=== PATIENT | female | born 1995 | race Two or more races ===

== ENCOUNTER 2025-01-11 16:51 | Emergency (ER) | payer MEDICAID, SELFPAY ==
[2025-01-11 16:52] VITALS: BMI 24.4
[2025-01-11 17:09] VITALS: BP 103/73; PULSE 93; RESP 18; TEMP 36.8; O2SAT 98; BMI 24.4
--- NOTE | 2025-01-11 17:27 | PD.EDBACK ---
ED Back Injury Pain RME/HPI General Chief Complaint: Back Pain/Injury Stated Complaint: REALLY BAD KIDNEY & LOWER BACK PAIN X 1 WK Time Seen by Provider: 01/11/25 17:22 Source: patient Arrival date/time: 01/11/25 16:51 Mode of arrival: ambulatory Limitations: no limitations RME / HPI RME / HPI Narrative: 29-year-old female presents to the ED with a complaint of low back pain that is left and right of her low spine with pelvic pain. This began 4 days ago. Patient tells me she had taken ibuprofen which seemed to help however her pain is becoming progressively worse. Patient also complains of tingling to the legs as well as to her upper extremities. Patient denies trauma. MD Complaint: back pain Onset (ago): day(s) (4 days) Duration: constant Similar Symptoms Previously: No Severity: moderate Relieving factors: immobilization Related Data Home Medications ?Medication ?Instructions ?Recorded ?Confirmed hydrocodone 5 mg-acetaminophen 325 1 tab PO Q6H PRN Pain 12/07/23 12/07/23 mg tablet Previous Rx's ?Medication ?Instructions ?Recorded cefuroxime axetil 500 mg tablet 500 mg PO BID #14 tabs 03/06/24 cyclobenzaprine 10 mg tablet 10 mg PO HS #20 tabs 01/11/25 naproxen 500 mg tablet 500 mg PO BID #20 tabs 01/11/25 Allergies Allergy/AdvReac Type Severity Reaction Status Date / Time No Known Allergies Allergy Verified 01/11/25 16:55 Review of Systems Constitutional Constitutional: Reports system reviewed and no additional complaints, except as documented Eyes Eyes: Reports system reviewed and no additional complaints, except as documented, Denies dry eyes, Denies exophthalmos and Reports floaters Cardiovascular Cardiovascular: Denies chest pain with activity and Denies claudication ED Exam Narrative Physical exam: Straight leg raises are negative for radiculopathy positive for low back pain. Negative for CVA tenderness. There is tenderness to palpation in the area just below the bladder left and right equally. There is no guarding negative for rebound tenderness. Patient is able to do up to 5 jumping jacks without a grimace however states pain to her low back denies pain to the epigastrium. General Limitations: Present no limitations General appearance: Present alert and in no apparent distress Head Head exam: Present atraumatic Eye Eye exam: Present normal appearance and EOMI ENT ENT exam: Present normal exam, normal oropharynx and mucous membranes moist Neck Neck exam: Present normal inspection, full ROM and trachea midline Chest Chest inspection: Present normal inspection and symmetric chest wall rise Respiratory Respiratory exam: Present normal lung sounds bilaterally Cardiovascular Cardiovascular exam: Present regular rate, normal rhythm and normal heart sounds Abdominal Exam Abdominal exam: Present soft, tenderness (There is tenderness to palpation left and right lower quadrants, negative for rebound tenderness. There is no guarding and there is no masses.) and normal bowel sounds Extremities Exam Extremities exam: Present normal inspection and full ROM Back Exam Back exam: Present normal inspection and full ROM Neurological Exam Neurological exam: Present alert and oriented X3 Psychiatric Psychiatric exam: Present normal affect and normal mood Skin Skin exam: Present warm, dry, intact and normal color Course Course Course Narrative: Patient will have a 3 view lumbar spine, CBC, CMP, UA, hCG, lipase. She will also have Toradol 30 mg IM. Quality Measures none Orders Category Date Time Status XR lumbar spine 2-3V Stat Exams 01/11/25 17:32 Completed CBC Stat Lab 01/11/25 17:49 Completed Comprehensive Metabolic Panel Stat Lab 01/11/25 17:49 Completed HCG Qualitative,Urine Stat Lab 01/11/25 17:55 Completed Lipase Stat Lab 01/11/25 17:49 Completed Urinalysis Stat Lab 01/11/25 17:55 Completed Ketorolac Inj [Toradol Inj] Med 01/11/25 17:27 Discontinued 30 mg IM X1 ONE Complete Vital Signs Vital signs: Vital Signs Temperature 98.3 F 01/11/25 17:09 Pulse Rate 93 01/11/25 17:09 Respiratory Rate 18 01/11/25 17:09 Blood Pressure 103/73 01/11/25 17:09 Pulse Oximetry (%) 98 01/11/25 17:09 Oxygen Delivery Method Room Air 01/11/25 17:09 Pulse ox 98% room air Back Pain / Injury MDM Narrative MDM Narrative:: Patient tells me Toradol 30 mg IM helped. I described and explained the labs with the patient. I explained that she had disc narrowing at L4-L5 which was possibly contributing to her low back pain as well as the numbness and tingling to her left and right lower extremities. Patient will be discharged with 500 mg of Naprosyn sent to the pharmacy of her choice. Patient will also have Flexeril sent to the pharmacy of her choice. Patient will be discharged in no apparent distress. She has to follow-up with primary care physician within 1 week. Or sooner if worse Patient data External records reviewed:: Other (specify) (N/A) Clinical information provided by:: patient Social determinants that could affect healthcare access:: none (N/A) Patient has the following chronic illnesses:: No chronic illness How is presenting disease/condition affected by chronic disease/condition?: no chronic disease Evaluation data The following diagnostics were reviewed and interpreted by me:: radiology exam(s) and other (specify) Lab and/or radiology exams considered but not ordered:: Lab review as well as x-ray review. Interpretation Summary: Low back pain secondary to disc narrowing of L4-L5. Medications / Prescriptions Medications or Prescriptions considered but not ordered:: None Medication administrations:: Medication Administration History Discontinued Medications Ketorolac Tromethamine (Ketorolac Inj 60 Mg/2 Ml Vial) 30 mg IM X1 ONE Stop: 01/11/25 17:28 Last Admin: 01/11/25 17:35 Dose: 30 mg Documented By: KATHY None Consultations Consultation(s) initiated? (list below): No Diagnosis Most likely diagnosis given after review of the tests above:: Low back pain secondary to disc narrowing of L4-L5 Admission Indicated Admission indicated?: not indicated Admission Request Was there a request for admission?: No Disposition Plan Disposition Plan: Discharge Discharge Attestation Discharge Attestation: The patient and all family members were given an opportunity to ask questions and understood the discharge instructions. Discharge instructions specifically effects, indications for sooner follow up or return to the emergency department, and the expected course of current diagnosis. Patient condition: Stable Discharge Plan Plan Patient Disposition: HOME (Self Care) Discharge Disposition comment: Discharge no apparent distress Patient condition on transfer: Stable Prescriptions/Referrals Prescriptions/Med Rec: New cyclobenzaprine 10 mg tablet 10 mg PO HS Qty: 20 0RF naproxen 500 mg tablet 500 mg PO BID Qty: 20 0RF No Action hydrocodone-acetaminophen [[place]] 5-325 mg Tablet 1 tab PO Q6H PRN (Reason: Pain) cefuroxime axetil 500 mg tablet 500 mg PO BID Qty: 14 0RF Referrals: Irwin Flores MD [Primary Care Provider] - In 1 week Problem List Clinical Impression: Low back pain Impression comment: Low back pain Patient/Caregiver Discharge Instructions Discharge Activity: activity as tolerated Education Materials: Anatomy of a Normal Spine Print Language: Guamanian Stand Alone Forms: Tiny Award Info., Patient Portal Info Letter PA/TECHNOLOGY RISK INTERN Supervising Physician PA/TECHNOLOGY RISK INTERN Supervising Physician: Lisa
--- NOTE | 2025-01-11 17:32 | XR_ITS ---
Examination: Lumbar spine 2 views TECHNIQUE: AP lateral lumbar spine 2 views Date and time: January 11, 2025 1837 hours INDICATIONS: Low back pain beginning one week ago. FINDINGS: Adequate alignment lumbar vertebral bodies. No lumbar fracture Mild disc narrowing L5-S1 No spondylolisthesis IMPRESSION: Mild disc narrowing L5-S1
[2025-01-11] MEDS: KETOROLAC INJ 60 MG/2 ML VIAL 30 MG IM (17:35)
[2025-01-11 17:57] LABS: Basophils % (Auto) 0 % (0-2.5); Eosinophils # (Auto) 0.1 Thou/mm3 (0.0-0.5); Eosinophils % (Auto) 1 % (0-10); Hematocrit 38.3 % (36.0-46.0); Hemoglobin 12.8 g/dL (12.0-16.0); Immature Granulocytes % (Auto) 0 % (0-0); Immature Granulocytes Auto 0.02 Thou/mm3 (0.00-0.00); Lymphocytes % (Auto) 15 % (10-50); Mean Corpuscular HGB Conc 33.4 g/dl (31.0-37.0); Mean Corpuscular Hemoglobin 30.2 pg (25.0-35.0); Mean Corpuscular Volume 90 fL (80-100); Monocytes # (Auto) 0.4 Thou/mm3 (0.0-0.8); Monocytes % (Auto) 7 % (0-12); Neutrophils % (Auto) 77 % (37-80); Nucleated Red Blood Cell % 0 /100 WBC (0); Platelet Count 210 Thou/mm3 (140-440); RDW Standard Deviation 43.1 fL (36.4-46.3); Red Blood Count 4.24 Miln/mm3 (4.00-5.20); White Blood Count 6.5 Thou/mm3 (3.6-11.0)
[2025-01-11 18:12] LABS: Collection Type, Urine Clean Catch
--- NOTE | 2025-01-11 18:17 | PC.NURSE ---
XRAY WAITING FOR HCG RESULTS, THEN XRAY WILL BE DONE IF NEGATIVE.
[2025-01-11 18:18] LABS: Anion Gap 9 (7-16); Blood Urea Nitrogen 11 mg/dL (9-23); Carbon Dioxide 24.3 mMol/L (20.0-31.0); Chloride 108 mMol/L (98-107); Potassium 3.7 mMol/L (3.4-5.1); Sodium 141 mMol/L (136-145)
[2025-01-11 18:19] LABS: Alanine Aminotransferase 12 U/L (10-49); Albumin, Serum 4.4 gm/dL (3.5-5.0); Albumin/Globulin Ratio 1.8 (1.2-2.2); Alkaline Phosphatase 86 U/L (46-116); Aspartate Amino Transferase 21 U/L (0-34); BUN/Creatinine Ratio 16 Ratio (12-20); Bilirubin,Total 0.6 mg/dL (0.3-1.2); Calcium 8.3 mg/dL (8.3-10.6); Calcium (Corrected) 8.3 mg/dL (8.5-10.1); Creatinine (Component) 0.7 mg/dL (0.6-1.3); Estimated Creatinine Clearance 95.2 mL/min (>60); Globulin 2.5 gm/dL (2.3-3.5); Glucose 112 mg/dL (74-106); Lipase 31 U/L (12-53); Osmolality,Calculated 281 (275-295); Total Protein 6.9 gm/dL (5.7-8.2); eGFR > 60 See Note
[2025-01-11 18:21] LABS: Bilirubin,Urine Negative (Negative); Blood,Urine 1+ (Negative); Clarity,Urine Clear (Clear/Hazy); Color,Urine Yellow (Lt Yel-Yel); Glucose, Urine Negative (Negative); Ketones,Urine Negative (Negative); Leukocyte Esterase,Urine Negative (Negative); Nitrite,Urine Negative (Negative); Protein,Urine 1+ (Neg - Trace); RBC,Urine 1 /hpf (0-3); Specific Gravity,Urine 1.034 (1.001-1.035); Squamous Epithelial Cell,Urine 1 /hpf (0-5); Urobilinogen,Urine Negative mg/dL (0.0-1.0); WBC,Urine 1 /hpf (0-5)
[2025-01-11 18:29] LABS: HCG Qualitative,Urine Negative
[2025-01-11 19:15] VITALS: BP 116/62; PULSE 72; RESP 18; TEMP 36.7; O2SAT 99
== END 2025-01-11 19:16 | disposition home or self-care (01) ==
PROVIDERS: Physician Assistant; Emergency Provider Family Medicine; PCP Family Medicine
DX: M48.061 Spinal stenosis, lumbar region without neurogenic claudication (principal)
CPT/HCPCS: 36415; 72100; 80053; 81001; 81025; 83690; 85025; 96372; 99283; J1885

== ENCOUNTER 2025-05-03 21:34 | Emergency (ER) | payer OTHER, SELFPAY ==
[2025-05-03 21:35] VITALS: BMI 24.4
[2025-05-03 21:47] VITALS: BP 108/64; PULSE 83; RESP 16; TEMP 36.9; O2SAT 99
--- NOTE | 2025-05-03 22:04 | PD.EDSKIN ---
ED Skin Abcess FB-RME/HPI General Chief complaint: Extremity Injury, Upper Stated complaint: WORK COMP LT ARM BURN Time Seen by Provider: 05/03/25 21:52 Source: patient, RN notes reviewed and old records reviewed Arrival date/time: 05/03/25 21:34 Mode of arrival: ambulatory Limitations: no limitations RME / HPI RME / HPI narrative: 29yof presents to ED for thermal burn that occurred today. Patient states she works at [employer] and accidentally bumped into the hot grill, obtained small burn to left upper arm. Sent from workers comp for evaluation. 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 Tetanus vaccine up-to-date Related Data Home Medications ?Medication ?Instructions ?Recorded ?Confirmed hydrocodone 5 mg-acetaminophen 325 1 tab PO Q6H PRN Pain 12/07/23 12/07/23 mg tablet Previous Rx's ?Medication ?Instructions ?Recorded cefuroxime axetil 500 mg tablet 500 mg PO BID #14 tabs 03/06/24 cyclobenzaprine 10 mg tablet 10 mg PO HS #20 tabs 01/11/25 naproxen 500 mg tablet 500 mg PO BID #20 tabs 01/11/25 bacitracin 500 unit/gram topical 1 applic topical QDAY #14 grams 05/03/25 ointment Allergies Allergy/AdvReac Type Severity Reaction Status Date / Time No Known Allergies Allergy Verified 01/11/25 16:55 Review of Systems Review of Systems Systems Reviewed: All systems reviewed, normal except as documented Integumentary/Breasts Comments: Reports burn, skin pain Past Medical History Surgical History OTHER SURGICAL HX: denies pshx Social History SMOKING STATUS: Never smoker SUBSTANCE USE: does not use ALCOHOL: Never Past Medical History Comments PMH COMMENT: denies pmhx ED Exam General Limitations: Present no limitations General appearance: Present alert and in no apparent distress Head Head exam: Present atraumatic and normocephalic Eye Eye exam: Present normal appearance, PERRL and EOMI ENT ENT exam: Present normal exam and mucous membranes moist Neck Neck exam: Present normal inspection and full ROM Chest Chest inspection: Present normal inspection and symmetric chest wall rise Respiratory Respiratory exam: Present normal lung sounds bilaterally; Absent respiratory distress Cardiovascular Cardiovascular exam: Present regular rate and normal rhythm Extremities Exam Extremities exam: Present normal inspection, full ROM and normal capillary refill; Absent joint swelling Neurological Exam Neurological exam: Present alert and oriented X3 Psychiatric Psychiatric exam: Present normal affect and normal mood Skin Skin exam: Present other (2x4cm partial thickness burn to left upper arm. No vesicle or bulla) Course Quality Measures none Vital Signs Vital signs: Vital Signs Temperature 98.4 F 05/03/25 21:47 Pulse Rate 83 05/03/25 21:47 Respiratory Rate 16 05/03/25 21:47 Blood Pressure 108/64 05/03/25 21:47 Pulse Oximetry (%) 99 05/03/25 21:47 Oxygen Delivery Method Room Air 05/03/25 21:47 Skin / Abscess / Foreign Body MDM Narrative MDM Narrative:: 29yof presents to ED for thermal burn that occurred today. Patient states she works at [employer] and accidentally bumped into the hot grill, obtained small burn to left upper arm. Sent from [employer] comp for evaluation. 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 Tetanus vaccine up-to-date Bacitracin and dressing applied to burn in ED. Home wound care discussed. Recommended follow-up with PCP as needed. Stable for discharge, RTED precautions given. Patient data External records reviewed:: [facility] previous records (01/11/2025 ED visit for low back pain) Clinical information provided by:: patient Social determinants that could affect healthcare access:: none Patient has the following chronic illnesses:: None How is presenting disease/condition affected by chronic disease/condition?: no chronic disease Evaluation data The following diagnostics were reviewed and interpreted by me:: other (specify) (None) Lab and/or radiology exams considered but not ordered:: None Interpretation Summary: na Medications / Prescriptions Medications or Prescriptions considered but not ordered:: None Medication administrations:: bacitracin Consultations Consultation(s) initiated? (list below): No Diagnosis Skin/Abscess Differential Diagnosis: other (Thermal burn, chemical burn, electrical burn, first-degree burn, second-degree burn) Most likely diagnosis given after review of the tests above:: Thermal burn, partial-thickness/second-degree burn Admission Indicated Admission indicated?: not indicated Admission Request Was there a request for admission?: No Disposition Plan Disposition Plan: Discharge Discharge Attestation Discharge Attestation: The patient and all family members were given an opportunity to ask questions and understood the discharge instructions. Discharge instructions specifically effects, indications for sooner follow up or return to the emergency department, and the expected course of current diagnosis. Patient condition: Stable Discharge Plan Plan Patient Disposition: HOME (Self Care) Patient condition on transfer: Stable Prescriptions/Referrals Prescriptions/Med Rec: New bacitracin 500 unit/gram ointment 1 applic topical QDAY Qty: 14 0RF No Action hydrocodone-acetaminophen [[place]] 5-325 mg Tablet 1 tab PO Q6H PRN (Reason: Pain) cefuroxime axetil 500 mg tablet 500 mg PO BID Qty: 14 0RF cyclobenzaprine 10 mg tablet 10 mg PO HS Qty: 20 0RF naproxen 500 mg tablet 500 mg PO BID Qty: 20 0RF Problem List Clinical Impression: Partial thickness burn of right upper arm Patient/Caregiver Discharge Instructions Education Materials: ED Burn, Second-Degree Print Language: Occitan Stand Alone Forms: Tiny Award Info., Patient Portal Info Letter PA/MANAGER FILE Supervising Physician PA/MANAGER FILE Supervising Physician: Romina
== END 2025-05-03 22:57 | disposition home or self-care (01) ==
LOC: SERX 22:48
PROVIDERS: Emergency Provider Emergency Medicine; PCP Family Medicine
DX: T22.20XA Burn of second degree of shoulder and upper limb, except wrist and hand, unspecified site, initial encounter (principal); T31.0 Burns involving less than 10% of body surface; W29.2XXA Contact with other powered household machinery, initial encounter; Y93.89 Activity, other specified; Y92.511 Restaurant or cafe as the place of occurrence of the external cause; Y99.0 Civilian activity done for income or pay
CPT/HCPCS: 99281